=== PATIENT | male | born 1955 | race African-American/Black ===

== ENCOUNTER 2018-02-25 07:41 | Emergency (ER) | payer BC, MEDICARE ==
[2018-02-25] MEDS ORDERED: Lidocaine Viscous Sol 2% 15 ml UD Cup ONE (08:40)
== END 2018-02-25 08:50 | disposition home or self-care (01) ==
LOC: ERS 07:41
DX: B02.9 Zoster without complications (principal); I10 Essential (primary) hypertension; J45.909 Unspecified asthma, uncomplicated; Z79.899 Other long term (current) drug therapy
CPT/HCPCS: 99283

== ENCOUNTER 2019-10-29 13:39 | Outpatient (CLI) | payer MEDICARE, BC ==
--- NOTE | 2019-10-29 14:17 | RAD ---
XR Chest Pa Lat STANDARD HISTORY: Asthma, chest pain, pneumonia COMPARISON: 08/20/2008 FINDINGS: The heart size is normal. The lungs are well expanded without focal areas of consolidation, pneumothorax or pleural effusions. IMPRESSION: No radiographic evidence of acute cardiopulmonary process.
== END 2019-10-29 13:40 | disposition home or self-care (01) ==
LOC: BICRAD 13:39
PROVIDERS: ATTEND Allergy & Immunology
DX: J18.9 Pneumonia, unspecified organism (principal)
CPT/HCPCS: 71046

== ENCOUNTER 2022-03-24 13:16 | Inpatient (IN) | payer MEDICARE ==
[2022-03-24 13:37] LABS: #Basophils 0.1 thou/uL (0.0-0.2); #Eosinphils 0.2 thou/uL (0.0-0.7); #Lymphocytes 2.7 thou/uL (1.20-3.40); #Monocytes 0.5 thou/uL (0.11-0.59); #Neutrophils 2.6 thou/uL (1.40-6.50); %Basophils 0.9 % (0.0-1.0); %Eosinophils 3.7 % (0.0-10.0); %Lymphocytes 44.4 % (21.0-51.0); %Monocytes 8.8 % (0.0-10.0); %Neutrophils 42.3 % (42.0-75.0); Hemoglobin 14.7 g/dL (14.0-18.0); Mean Corpuscular HGB CONC 32.1 g/dL (32.0-36.0); Mean Corpuscular Hemoglobin 29.5 pg (27.0-31.0); Mean Platelet Volume 6.1 fL (7.4-10.4); Platelet Count 338 thou/uL (130-400); RBC Distribution Width 12.1 % (11.5-14.5); Red Blood Cell (RBC) Count 4.99 mill/uL (4.70-6.10); White Blood Cell (WBC) Count 6.1 thou/uL (4.8-10.8)
[2022-03-24 13:49] LABS: PTT 35.1 sec (22.9-36.1)
[2022-03-24 14:01] LABS: ALT (SGPT) 41 U/L (8-55); AST (SGOT) 38 U/L (5-34); Albumin 4.6 g/dL (3.4-4.8); Alkaline Phosphatase 64 U/L (40-110); Anion Gap 13 mmol/L (10-20); BUN (Urea Nitrogen) 10 mg/dL (8.4-25.7); Bilirubin, Total 0.6 mg/dL (0.2-1.2); CK (CPK) 974 U/L (30-200); Calc. Creatinine Clearance 0 mL/min (70-130); Calcium 9.6 mg/dL (7.8-10.44); Carbon Dioxide 24 mmol/L (23-31); Chloride 105 mmol/L (98-107); Globulin 3.1 g/dL (2.4-3.5); Glucose 83 mg/dL (80-115); Lipase 67 U/L (8-78); Potassium 4.1 mmol/L (3.5-5.1); Protein, Total 7.7 g/dL (5.8-8.1); Sodium 138 mmol/L (136-145)
[2022-03-24] MEDS ORDERED: Aspirin Chewable 81 MG TAB ONE (14:28)
[2022-03-24 15:38] LABS: Bilirubin Negative (Negative); Blood, Urine Negative (Negative); Clarity Clear (Clear); Glucose, Urine (Dipstick) Normal (Negative); Ketone, Urine Negative (Negative); Leukocyte Negative Leu/uL (Negative); Nitrite Negative (Negative); Protein, Urine (Dipstick) Negative (Neg-Trace); Specific Gravity, Urine 1.006 (1.002-1.036); Urobilinogen Normal mg/dL (Less than 2); pH, Urine 6.5 (5.0-9.0)
[2022-03-24 18:54] LABS: Troponin I Less than 0.010 ng/mL (< 0.028)
[2022-03-24 19:27] VITALS: BMI 28.5
[2022-03-24] MEDS ORDERED: Ondansetron PF 4 MG/2 ML Vial IVP PRN (19:30)
[2022-03-24] MEDS ORDERED: Ondansetron ODT 4 MG TAB SL PRN (19:30)
[2022-03-24] MEDS ORDERED: Albuterol Sulfate 2.5 mg/3 ml Neb NEB PRN (19:51)
[2022-03-24] MEDS ORDERED: HYDROcodone/Acetaminophen 5/325 mg Tablet PO PRN (19:52)
[2022-03-24] MEDS ORDERED: Insulin Regular 300 UNITS/3 ML VIAL SC PRN (20:00)
[2022-03-24] MEDS ORDERED: Dextrose 5% in Water 1,000 ML IV PRN (20:00)
[2022-03-24] MEDS: Docusate 100 MG CAP PO SCH (20:35)
[2022-03-24] MEDS: Azelastine 137 MCG/Spray 30 ML NS SCH (20:35)
[2022-03-24] MEDS: Rosuvastatin 20 MG TAB PO SCH (20:36)
[2022-03-24 21:56] LABS: Troponin I 0.012 ng/mL (< 0.028)
[2022-03-24 22:10] LABS: Bacteria/HPF None Seen HPF (None Seen); Bilirubin Negative (Negative); Blood, Urine Negative (Negative); Clarity Clear (Clear); Glucose, Urine (Dipstick) Normal (Negative); Ketone, Urine Negative (Negative); Leukocyte Negative Leu/uL (Negative); Nitrite Negative (Negative); Protein, Urine (Dipstick) Negative (Neg-Trace); RBC/HPF 0-3 HPF (0-3); Squamous Epithelial None Seen HPF (0-3); Urobilinogen Normal mg/dL (Less than 2); WBC/HPF 0-3 HPF (0-3)
[2022-03-25 04:56] LABS: #Eosinphils 0.3 thou/uL (0.0-0.7); #Lymphocytes 2.1 thou/uL (1.20-3.40); #Monocytes 0.5 thou/uL (0.11-0.59); #Neutrophils 2.3 thou/uL (1.40-6.50); %Basophils 0.9 % (0.0-1.0); %Lymphocytes 40.2 % (21.0-51.0); %Monocytes 8.8 % (0.0-10.0); %Neutrophils 45.2 % (42.0-75.0); Hemoglobin 14.9 g/dL (14.0-18.0); Mean Corpuscular HGB CONC 32.9 g/dL (32.0-36.0); Mean Corpuscular Volume 91.3 fL (78.0-98.0); Mean Platelet Volume 6.2 fL (7.4-10.4); Platelet Count 315 thou/uL (130-400); Red Blood Cell (RBC) Count 4.97 mill/uL (4.70-6.10); White Blood Cell (WBC) Count 5.2 thou/uL (4.8-10.8)
[2022-03-25 05:19] LABS: Anion Gap 10 mmol/L (10-20); BUN (Urea Nitrogen) 9 mg/dL (8.4-25.7); Calc. Creatinine Clearance 77 mL/min (70-130); Calcium 9.3 mg/dL (7.8-10.44); Carbon Dioxide 25 mmol/L (23-31); Cardiac Risk 2.8 (Less than 4.5); Chloride 106 mmol/L (98-107); Cholesterol 120 mg/dl (< 200 Desired); Glucose 91 mg/dL (80-115); HDL Cholesterol 43 mg/dL (>60 Neg Risk); LDL Cholesterol, Calculated 59 mg/dL; Potassium 4.1 mmol/L (3.5-5.1); Sodium 137 mmol/L (136-145); Triglycerides 92 mg/dL (Less than 150)
[2022-03-25] MEDS: Budesonide 0.5 MG/2 ML NEB NEB SCH ×2 (07:05→19:38)
[2022-03-25] MEDS: Azelastine 137 MCG/Spray 30 ML NS SCH ×2 (08:55→21:56)
[2022-03-25] MEDS: Losartan 25 MG TAB PO SCH (08:56)
[2022-03-25] MEDS: Docusate 100 MG CAP PO SCH ×2 (08:56→21:56)
[2022-03-25] MEDS: Aspirin 81 mg Enteric Coated Tablet PO SCH (08:56)
[2022-03-25] MEDS: Finasteride 5 MG TAB PO SCH (08:57)
[2022-03-25] MEDS: Tamsulosin HCl 0.4 MG CAP PO SCH (08:57)
[2022-03-25 11:55] LABS: SARS-CoV-2 PCR by NAA Not Detected (NotDetected)
[2022-03-25] MEDS ORDERED: Magnevist 469MG/ML 20 ML VIAL ONE (14:32)
[2022-03-25] MEDS ORDERED: Acetaminophen 650 MG/20.3 ML UDCUP PO PRN (17:04)
[2022-03-25] MEDS: Rosuvastatin 20 MG TAB PO SCH (21:56)
[2022-03-26 04:50] LABS: #Eosinphils 0.3 thou/uL (0.0-0.7); #Lymphocytes 1.7 thou/uL (1.20-3.40); #Monocytes 0.5 thou/uL (0.11-0.59); #Neutrophils 3.5 thou/uL (1.40-6.50); %Basophils 0.6 % (0.0-1.0); %Eosinophils 4.4 % (0.0-10.0); %Monocytes 8.3 % (0.0-10.0); %Neutrophils 57.7 % (42.0-75.0); Hemoglobin 15.1 g/dL (14.0-18.0); Mean Corpuscular HGB CONC 33.6 g/dL (32.0-36.0); Mean Corpuscular Hemoglobin 30.7 pg (27.0-31.0); Mean Corpuscular Volume 91.4 fL (78.0-98.0); Mean Platelet Volume 6.3 fL (7.4-10.4); Platelet Count 289 thou/uL (130-400); RBC Distribution Width 11.9 % (11.5-14.5); Red Blood Cell (RBC) Count 4.92 mill/uL (4.70-6.10)
[2022-03-26 05:11] LABS: Anion Gap 13 mmol/L (10-20); BUN (Urea Nitrogen) 11 mg/dL (8.4-25.7); Calc. Creatinine Clearance 82 mL/min (70-130); Calcium 9.2 mg/dL (7.8-10.44); Carbon Dioxide 23 mmol/L (23-31); Chloride 106 mmol/L (98-107); Glucose 103 mg/dL (80-115); Potassium 3.9 mmol/L (3.5-5.1); Sodium 138 mmol/L (136-145)
[2022-03-26] MEDS: Budesonide 0.5 MG/2 ML NEB NEB SCH ×2 (07:47→19:41)
[2022-03-26] MEDS: Aspirin 81 mg Enteric Coated Tablet PO SCH (09:27)
[2022-03-26] MEDS: Losartan 25 MG TAB PO SCH (09:27)
[2022-03-26] MEDS: Azelastine 137 MCG/Spray 30 ML NS SCH ×2 (09:27→20:30)
[2022-03-26] MEDS: Tamsulosin HCl 0.4 MG CAP PO SCH (09:27)
[2022-03-26] MEDS: Finasteride 5 MG TAB PO SCH (09:27)
[2022-03-26] MEDS: Docusate 100 MG CAP PO SCH ×2 (09:27→20:30)
[2022-03-26] MEDS: Rosuvastatin 20 MG TAB PO SCH (20:30)
[2022-03-27] MEDS: Tamsulosin HCl 0.4 MG CAP PO SCH (08:31)
[2022-03-27] MEDS: Docusate 100 MG CAP PO SCH (08:31)
[2022-03-27] MEDS: Losartan 25 MG TAB PO SCH (08:31)
[2022-03-27] MEDS: Finasteride 5 MG TAB PO SCH (08:31)
[2022-03-27] MEDS: Aspirin 81 mg Enteric Coated Tablet PO SCH (08:31)
[2022-03-27] MEDS: Azelastine 137 MCG/Spray 30 ML NS SCH (08:32)
[2022-03-27] MEDS: Budesonide 0.5 MG/2 ML NEB NEB SCH (08:45)
[2022-03-27 11:42] VITALS: BP 141/87; TEMP 98
== END 2022-03-27 12:10 | disposition home or self-care (01) | DRG 65 ==
LOC: ERS 13:16 → NEURO 15:21
PROVIDERS: ADMIT Specialist; ATTEND Specialist
DX: I63.9 Cerebral infarction, unspecified (principal); G81.94 Hemiplegia, unspecified affecting left nondominant side; J45.51 Severe persistent asthma with (acute) exacerbation; Z20.822 Contact with and (suspected) exposure to COVID-19; E78.5 Hyperlipidemia, unspecified; R47.1 Dysarthria and anarthria; I10 Essential (primary) hypertension; E11.9 Type 2 diabetes mellitus without complications; R29.701 NIHSS score 1; N40.0 Benign prostatic hyperplasia without lower urinary tract symptoms; Z87.891 Personal history of nicotine dependence; Z88.8 Allergy status to other drugs, medicaments and biological substances; Z79.899 Other long term (current) drug therapy; Z79.84 Long term (current) use of oral hypoglycemic drugs
CPT/HCPCS: 36415; 36416; 70450; 70553; 71045; 80048; 80053; 80061; 81003; 82550; 83036; 83690; 83880; 84443; 84484; 85025; 85610; 85652; 85730; 93005; 93306; 93880; 94640; 95712; 95819; 95957; A9579; J7626; U0003; U0005

== ENCOUNTER 2022-09-22 12:21 | Outpatient (CLI) | payer MEDICARE | END 2022-09-22 12:22 | disposition home or self-care (01) | LOC: SCSMRI 12:21 | PROVIDERS: ATTEND Nurse Practitioner Family | DX: M47.26 Other spondylosis with radiculopathy, lumbar region (principal); M25.552 Pain in left hip; M79.605 Pain in left leg; M47.27 Other spondylosis with radiculopathy, lumbosacral region | CPT/HCPCS: 72148 ==

== ENCOUNTER 2024-12-21 11:59 | Observation (INO) | payer MEDICARE ==
[2024-12-21 13:00] LABS: #Basophils Less than 0.03 10x3/uL (0.0-0.2); #Eosinophils Less than 0.03 10x3/uL (0.0-0.7); %Basophils 0.2 % (0.0-1.0); %Eosinophils 0.2 % (0.0-10.0); %Lymphocytes 23.4 % (21.0-51.0); %Monocytes 8.8 % (0.0-10.0); %Neutrophils 67.2 % (42.0-75.0); Hematocrit 38.2 % (42.0-52.0); Hemoglobin 12.8 g/dL (14.0-18.0); Mean Corpuscular HGB CONC 33.5 g/dL (32.0-36.0); Mean Corpuscular Hemoglobin 29.3 pg (27.0-31.0); Mean Corpuscular Volume 87.4 fL (78.0-98.0); Mean Platelet Volume 8.9 fL (7.4-10.4); Platelet Count 266 10x3/uL (130-400); RBC Distribution Width 13.6 % (11.5-14.5); Red Blood Cell (RBC) Count 4.37 mill/uL (4.70-6.10)
[2024-12-21 13:17] LABS: INR-International Normal Ratio 1.1; Prothrombin Time 13.8 sec (12.0-14.7)
[2024-12-21 13:18] LABS: PTT 34.9 sec (22.9-36.1)
[2024-12-21 13:22] LABS: ALT (SGPT) 34 U/L (Less than 45); AST (SGOT) 29 U/L (11-34); Acetaminophen Less than 10 mcg/mL (Less than 10); Albumin 3.6 g/dL (3.1-4.5); Alcohol Less than 10.0 mg/dL (Less than 10); Alkaline Phosphatase 59 U/L (40-110); Anion Gap 13 mmol/L (10-20); BUN (Urea Nitrogen) 12 mg/dL (8.4-25.7); Bilirubin, Total 0.4 mg/dL (0.3-1.2); Calc. Creatinine Clearance 0 mL/min (70-130); Calcium 8.5 mg/dL (7.8-10.44); Carbon Dioxide 25 mmol/L (23-31); Chloride 101 mmol/L (98-107); Estimated GFR 33; Globulin 2.9 g/dL (2.4-3.5); Glucose 184 mg/dL (83-110); Potassium 4.7 mmol/L (3.5-5.1); Protein, Total 6.5 g/dL (5.8-8.1); Salicylate Less than 8.0 mg/dL (Less than 8.0); Sodium 134 mmol/L (136-145)
[2024-12-21 13:25] LABS: Troponin I 0.013 ng/mL (< 0.028)
[2024-12-21 13:44] LABS: Actual Bicarbonate (HCO3v) 23.5 mEq/L (22-28); Analyzer IN Cardio ER; Base Excess -2.1 mEq/L (-2.0 to +3.0); Chloride (VBG) 98 mmol/L (98-106); Hematocrit-VBG 38 % (42.0-52.0); Hemoglobin (Hb) 12.9 g/dL (12.6-17.4); Potassium (VBG) 4.09 mmol/L (3.70-5.30); Sodium 133 mmol/L (133-146); pH (venous) 7.353 (7.32-7.43)
[2024-12-21] MEDS ORDERED: Iopamidol-370 76% 500 ML MDV (1 ML CHARGE) ONE (13:59)
[2024-12-21 16:07] LABS: Bacteria/HPF None Seen HPF (None Seen); Bilirubin Negative (Negative); Blood, Urine Negative (Negative); CAUTI Indications for Culture Alt mental st,lethar; Clarity Clear (Clear); Glucose, Urine (Dipstick) Normal (Negative); Ketone, Urine Negative (Negative); Leukocyte Negative Leu/uL (Negative); Nitrite Negative (Negative); Protein, Urine (Dipstick) 10 mg/dL (Neg-Trace); RBC/HPF 0-3 HPF (0-3); Specific Gravity, Urine 1.034 (1.002-1.036); Squamous Epithelial None Seen HPF (0-3); Urobilinogen Normal mg/dL (Less than 2); WBC/HPF 0-3 HPF (0-3); pH, Urine 7.5 (5.0-9.0)
[2024-12-21 16:12] LABS: Urine Culture Reflex No No
[2024-12-21 16:15] LABS: Amphetamine Not Detected (NotDetected); Barbiturates Screen Not Detected (NotDetected); Benzodiazepine Screen Not Detected (NotDetected); Cocaine Metabolite Screen Not Detected (NotDetected); Methadone Not Detected (NotDetected); Methamphetamine Not Detected (NotDetected); Opiate Screen Not Detected (NotDetected); Oxycodone Screen Not Detected (NotDetected); Phencyclidine (PCP) Not Detected (NotDetected); THC/Cannabinoid Screen Not Detected (NotDetected); Tricyclic Screen Not Detected (NotDetected)
[2024-12-21] MEDS ORDERED: Oseltamivir 75 MG CAP ONE (16:35)
[2024-12-21 17:05] LABS: Lactic Acid 1.19 mmol/L (0.50-2.20)
[2024-12-21] MEDS ORDERED: Dextrose 50% Abboject 50 ML SYRINGE SLOW IVP PRN (18:37)
[2024-12-21] MEDS ORDERED: Glucagon 1 MG/ML KIT IM PRN (18:37)
[2024-12-21] MEDS ORDERED: Ondansetron ODT 4 MG TAB PO PRN (18:37)
[2024-12-21] MEDS ORDERED: Acetaminophen 650 MG Suppository PR PRN (18:37)
[2024-12-21] MEDS ORDERED: Dextrose 5% in Water 1,000 ML IV PRN (18:37)
[2024-12-21] MEDS ORDERED: Ondansetron PF 4 MG/2 ML Vial IVP PRN (18:37)
[2024-12-21] MEDS ORDERED: Calcium Carbonate 500 MG ChewTAB PO PRN (18:37)
[2024-12-21] MEDS ORDERED: hydrALAZINE 20 MG/ML VIAL SLOW IVP PRN (18:37)
[2024-12-21] MEDS ORDERED: Acetaminophen 325 MG TAB PO PRN (18:37)
[2024-12-21] MEDS ORDERED: Senokot S 8.6-50 MG TAB PO PRN (18:37)
[2024-12-21] MEDS ORDERED: Insulin Lispro 100 UNIT/ML 10 ML VIAL SC PRN ×2 (18:37)
[2024-12-21] MEDS ORDERED: Albuterol 2.5 MG (3 mL) NEB NEB PRN (18:37)
[2024-12-21] MEDS ORDERED: Albuterol 200 PUFF INH INH PRN (18:37)
[2024-12-21] MEDS ORDERED: Benzonatate 100 MG CAP PO PRN (18:42)
[2024-12-21 19:58] VITALS: BMI 27.0
[2024-12-21] MEDS: Aspirin 325 mg Enteric Coated Tablet PO SCH (20:54)
[2024-12-21] MEDS: Sodium Chloride 0.9% 1,000 ML IV SCH (20:54)
[2024-12-21] MEDS: Amoxicillin/Potassium Clav 250 MG TAB PO SCH (20:54)
[2024-12-21] MEDS: Heparin 5,000 UNITS/ML VIAL SC SCH (20:55)
[2024-12-21] MEDS: Atorvastatin Calcium 40 MG TAB PO SCH (20:55)
[2024-12-22 04:20] LABS: #Basophils Less than 0.03 10x3/uL (0.0-0.2); %Basophils 0.3 % (0.0-1.0); %Lymphocytes 44.5 % (21.0-51.0); %Monocytes 15.1 % (0.0-10.0); %Neutrophils 37.8 % (42.0-75.0); Hematocrit 37.4 % (42.0-52.0); Hemoglobin 12.3 g/dL (14.0-18.0); Mean Corpuscular HGB CONC 32.9 g/dL (32.0-36.0); Mean Corpuscular Hemoglobin 28.7 pg (27.0-31.0); Mean Corpuscular Volume 87.4 fL (78.0-98.0); Mean Platelet Volume 8.8 fL (7.4-10.4); Platelet Count 251 10x3/uL (130-400); RBC Distribution Width 13.9 % (11.5-14.5); Red Blood Cell (RBC) Count 4.28 mill/uL (4.70-6.10)
[2024-12-22 05:37] LABS: Chloride 112 mmol/L (98-107); Potassium 3.8 mmol/L (3.5-5.1); Sodium 141 mmol/L (136-145)
[2024-12-22 05:38] LABS: Calcium 8.1 mg/dL (7.8-10.44)
[2024-12-22 05:39] LABS: Glucose 92 mg/dL (83-110); Triglycerides 52 mg/dL (Less than 150)
[2024-12-22 05:40] LABS: Anion Gap 11 mmol/L (10-20); Carbon Dioxide 22 mmol/L (23-31)
[2024-12-22 05:42] LABS: Calc. Creatinine Clearance 71 mL/min (70-130); Estimated GFR 77
[2024-12-22 05:43] LABS: BUN (Urea Nitrogen) 10 mg/dL (8.4-25.7)
[2024-12-22 05:44] LABS: Cholesterol 86 mg/dl (< 200 Desired)
[2024-12-22 05:45] LABS: Cardiac Risk 2.4 (Less than 4.5); HDL Cholesterol 36 mg/dL (>60 Neg Risk); LDL Cholesterol, Calculated 40 mg/dL
[2024-12-22] MEDS ORDERED: Aspirin 81 mg Enteric Coated Tablet PO SCH (09:00)
[2024-12-22] MEDS: Aspirin 81 mg Enteric Coated Tablet PO SCH (09:06)
[2024-12-22] MEDS: Finasteride 5 MG TAB PO SCH (11:31)
[2024-12-22] MEDS: Oseltamivir 6 MG/ML ORAL SUSP PO SCH (11:31)
[2024-12-22] MEDS: Tamsulosin HCl 0.4 MG CAP PO SCH (11:31)
[2024-12-22 16:46] VITALS: BP 136/75; TEMP 98
[2024-12-23] MEDS ORDERED: FLU (Fluad Triv) TS24-25 (65UP)/MF59C/PF 45 MCG/0.5 ML Syringe IM ONE (09:00)
== END 2024-12-22 20:25 | disposition home or self-care (01) ==
LOC: ERS 11:59 → 2SE 17:07
PROVIDERS: ADMIT Internal Medicine; ATTEND Internal Medicine
DX: R47.81 Slurred speech (principal); R41.82 Altered mental status, unspecified; I69.354 Hemiplegia and hemiparesis following cerebral infarction affecting left non-dominant side; N17.9 Acute kidney failure, unspecified; J10.1 Influenza due to other identified influenza virus with other respiratory manifestations; E78.5 Hyperlipidemia, unspecified; E11.9 Type 2 diabetes mellitus without complications; N40.0 Benign prostatic hyperplasia without lower urinary tract symptoms; I10 Essential (primary) hypertension; J45.909 Unspecified asthma, uncomplicated; Z79.82 Long term (current) use of aspirin; Z79.899 Other long term (current) drug therapy; Z79.51 Long term (current) use of inhaled steroids; Z88.8 Allergy status to other drugs, medicaments and biological substances; Z98.890 Other specified postprocedural states; Z87.891 Personal history of nicotine dependence
CPT/HCPCS: 0042T; 70450; 70496; 70498; 70551; 71045; 80048; 80061; 80306; 80307; 81001; 82805; 82962 ×2; 83605; 83880; 84484; 85025; 85610; 85730; 87040; 87086; 87428; 93005; 96372 ×2; 97530; G0378 ×3; J1644 ×2; J7030 ×2; Q9967; 36415; 36416; 80053; 84443